=== PATIENT | female | born 1940 | race African-American/Black ===

== ENCOUNTER 2018-03-10 23:05 | Inpatient (IN) | payer OTHER, BC ==
[~2018-03-10] VITALS: Ht 160 cm; Wt 72.6 kg
[~2018-03-10 23:05] MED LIST: ANTIVERT/2525 MG PO; CIALIS5 M1 PO; CRESTOR10 M1 PO; DONN PO; GLU500 PO; JANUMET1 TAB PO; MAC100 PO; NEU300 PO; NEXIUM40 MG PO; OYSTER SHELL C500 M3 PO; PRINIVIL10 MG PO; VITAMIN D32000 I2 PO; XALATAN2.5 ML OU; ZES10 PO
[2018-03-11 00:05] LABS: BASOPHIL % 0.4 % (0-2); PLATELET COUNT 332 x10^3mcL (130-400); RED CELL DISTRIBUTION WIDTH 13.4 % (11.5-14.5)
[2018-03-11 00:31] LABS: CALCIUM 9.1 mg/dL (8.5-10.1); CARBON DIOXIDE 26.3 mmol/L (21-32); CHLORIDE SERUM 100 mmol/L (98-107); CREATININE SERUM 1.1 mg/dL (0.6-1.0); GLUCOSE SERUM 314 mg/dL (74-106); POTASSIUM SERUM 4.9 mmol/L (3.5-5.1); SODIUM SERUM 134 mmol/L (136-145)
[2018-03-11 00:35] LABS: ALBUMIN 3.8 g/dL (3.4-5.0); ALKALINE PHOSPHATASE 113 U/L (46-116); ALT/SGPT 14 U/L (14-59); AST/SGOT 23 U/L (15-37); BILIRUBIN TOTAL 0.2 mg/dL (0.20-1.00); MAGNESIUM 1.8 mg/dL (1.8-2.4)
[2018-03-11] MEDS ORDERED: GABAPENTIN100 M2 (01:13)
[2018-03-11] MEDS ORDERED: OYSTER SHELL CA PO (01:13)
[2018-03-11] MEDS ORDERED: METFORMIN HCL1000 MG PO (01:13)
[2018-03-11] MEDS ORDERED: FAMOTIDINE40 MG PO (01:14)
[2018-03-11] MEDS ORDERED: NATURE'S BLEND F1 MG PO (01:14)
[2018-03-11] MEDS ORDERED: PANTOPRAZOLE SO40 M1 PO (01:14)
[2018-03-11] MEDS ORDERED: MECLIZINE HYDRO25 M1 PO (01:15)
[2018-03-11] MEDS ORDERED: ZESTRIL5 MG PO (01:16)
[2018-03-11] MEDS ORDERED: CARISOPRODOL350 MG PO (01:17)
[2018-03-11] MEDS ORDERED: NOVOLOG100 U/ML SC (01:17)
[2018-03-11] MEDS ORDERED: LEVEMIR100 U/M1 SC (01:17)
[2018-03-11] MEDS ORDERED: XIIDRA1 EACH OP (01:18)
[2018-03-11] MEDS ORDERED: [UNRECOGNIZED DRUG - OTHER] MC (01:18)
[2018-03-11 02:22] LABS: CHOLESTEROL/HDL RATIO 3.5; PHOSPHOROUS 3.2 mg/dL (2.5-4.9)
[2018-03-11 02:25] VITALS: BP 117/56
[2018-03-11 02:30] LABS: FREE T4 0.95 ng/dL (0.76-1.46); FREE THYROXINE INDEX 2.2 ug/dL (1.4-4.5); T4(THYROXINE) 6.7 ug/dL (4.7-13.3)
[2018-03-11 04:29] LABS: T3 TOTAL 0.84 ng/mL
[2018-03-11 05:58] VITALS: BP 117/50
[2018-03-11 06:34] LABS: CALCIUM 8.9 mg/dL (8.5-10.1); CARBON DIOXIDE 27.4 mmol/L (21-32); CHLORIDE SERUM 104 mmol/L (98-107); POTASSIUM SERUM 3.4 mmol/L (3.5-5.1); SODIUM SERUM 141 mmol/L (136-145)
[2018-03-11 06:47] LABS: GLUCOSE SERUM 44 mg/dL (74-106)
[2018-03-11 07:10] LABS: BASOPHIL % 0.3 % (0-2); PLATELET COUNT 352 x10^3mcL (130-400); RED CELL DISTRIBUTION WIDTH 13.4 % (11.5-14.5)
[2018-03-11 08:57] VITALS: BP 109/51
[2018-03-11 13:10] VITALS: BP 117/52
[2018-03-11 17:20] VITALS: BP 132/64
[2018-03-11 18:35] LABS: UA SPECIFIC GRAVITY 1.015 (1.005-1.035); microscopic required? YES; urine erythrocyte NEGATIVE (NEGATIVE)
[2018-03-11 20:13] VITALS: BP 120/60
[2018-03-12 05:17] VITALS: BP 148/81
[2018-03-12 06:31] LABS: BASOPHIL % 0.4 % (0-2); PLATELET COUNT 299 x10^3mcL (130-400); RED CELL DISTRIBUTION WIDTH 13.6 % (11.5-14.5)
[2018-03-12 06:43] LABS: CALCIUM 8.1 mg/dL (8.5-10.1); CHLORIDE SERUM 107 mmol/L (98-107); CREATININE SERUM 0.9 mg/dL (0.6-1.0); GLUCOSE SERUM 165 mg/dL (74-106); POTASSIUM SERUM 4.3 mmol/L (3.5-5.1); SODIUM SERUM 140 mmol/L (136-145)
[2018-03-12 09:47] VITALS: BP 130/82
[2018-03-12] MEDS ORDERED: KEFLEX250 M1 PO (10:56)
[2018-03-12] MEDS ORDERED: ZES5 PO (10:56)
[2018-03-12 12:07] VITALS: BP 130/82
[2018-03-12 17:24] VITALS: Ht 160 cm; Wt 72.6 kg
== END 2018-03-12 13:10 | DRG 637 ==
LOC: ED 23:05 → DU 03-11 01:28
PROVIDERS: Emergency Medicine; Family Medicine; Internal Medicine
DX: E11.65 Type 2 diabetes mellitus with hyperglycemia (principal); N17.0 Acute kidney failure with tubular necrosis; N39.0 Urinary tract infection, site not specified; E86.0 Dehydration; E87.6 Hypokalemia; D64.9 Anemia, unspecified; E78.5 Hyperlipidemia, unspecified; I10 Essential (primary) hypertension; Z68.28 Body mass index [BMI] 28.0-28.9, adult; Z79.4 Long term (current) use of insulin; Z79.84 Long term (current) use of oral hypoglycemic drugs
CPT/HCPCS: 82962; 83880; 84439; 87046; 87046-59; 90658; 97110-GP; 97116-GP; 97530-GP; J0696; J1815; J3490; J7030; Q0092